=== PATIENT | female | born 1935 | race Caucasian/White ===

== ENCOUNTER 2020-07-04 07:47 | Inpatient (IN) | payer MEDICARE, OTHER ==
[2020-07-04 08:15] VITALS: BMI 23.0
[2020-07-04] MEDS ORDERED: VANCOMYCIN 1 GM in D5W (PRE-DOCKED) 1,000 MG/250 ML IVPB ONE (08:22)
[2020-07-04] MEDS ORDERED: ACETAMINOPHEN 1000 MG/100 ML VIAL (NON FORMULARY) IVPB ONE (08:22)
[2020-07-04] MEDS ORDERED: LACTATED RINGERS SOLUTION 1000 ML INFUS.BAG IV ONE (08:22)
[2020-07-04] MEDS ORDERED: PIPERACILLIN/TAZOB 4.5 GM 4.5 GM in DEXTROSE 5%-WATER 100 ML IVPB ONE (08:22)
[2020-07-04] MEDS ORDERED: DEXAMETHASONE SOD PHOSPHATE 4 MG/1 ML VIAL IVPUSH ONE (08:35)
[2020-07-04 09:03] LABS: BASO % 0.1 % (0-2.0); HEMOGLOBIN 13.7 GM/dL (10.7-15.3); MCH 31.9 pg (25.7-33.7); MCHC 34.3 g/dl (32.0-36.0); MEAN CELL VOLUME 93.1 fl (80-96); MONO % 6.6 % (3.8-10.2); NEUT % 79.3 % (42.8-82.8); PLATELET COUNT 200 K/MM3 (134-434); RDW 15.4 % (11.6-15.6)
[2020-07-04 09:08] LABS: INR 1.32 (0.83-1.09); PROTHROMBIN TIME (PATIENT) 15.8 SEC (9.7-13.0)
[2020-07-04 09:30] LABS: CHLORIDE 111 mmol/L (98-107); SODIUM 145 mmol/L (136-145)
[2020-07-04 09:32] LABS: CALCIUM 9.2 mg/dL (8.5-10.1)
[2020-07-04 09:33] LABS: ALBUMIN 3.2 g/dl (3.4-5.0); BLOOD UREA NITROGEN 56.6 mg/dL (7-18); CO2 28 mmol/L (21-32); GLUCOSE,RANDOM 124 mg/dL (74-106); MAGNESIUM 2.2 mg/dL (1.8-2.4)
[2020-07-04 09:36] LABS: CREATININE 1.7 mg/dL (0.55-1.3); SGOT/AST 118 U/L (15-37); SGPT/ALT 69 U/L (13-61)
[2020-07-04 09:37] LABS: ARTERIAL BLD GAS O2 SATURATION 97.5 mmHg (95-98); ARTERIAL BLOOD GAS BASE EXCESS 1.7 mmol/L (-2-2); ARTERIAL BLOOD GAS PO2 79.6 mmHg (80-100); ARTERIAL BLOOD GAS pH 7.593 (7.350-7.450)
[2020-07-04 09:37] LABS: BILIRUBIN,TOTAL 0.4 mg/dL (0.2-1); TOT PROT 7.1 g/dl (6.4-8.2)
[2020-07-04 09:38] LABS: ALK PHOS 48 U/L (45-117)
[2020-07-04 09:39] LABS: N-TERMINAL BNP 6077.6 pg/ml (5-450)
[2020-07-04 10:01] LABS: ERYTHROCYTE SEDIMENTATION RATE 48 mm/hr (0-30)
[2020-07-04 10:12] LABS: LDH 562 U/L (84-246)
[2020-07-04 10:16] LABS: ANION GAP 6 MMOL/L (8-16)
[2020-07-04 10:22] LABS: POTASSIUM 2.9 mmol/L (3.5-5.1)
[2020-07-04] MEDS ORDERED: FAMOTIDINE 20 MG/50 ML IVPB 20 MG/50 ML MG IVPB SCH (10:45)
[2020-07-04 11:01] LABS: INFLU A MOLECULAR Negative (Negative); SARS COV-2 MOLECULAR Positive (Negative)
[2020-07-04 11:02] LABS: INFLU B MOLECULAR Negative (Negative)
[2020-07-04 11:39] LABS: POTASSIUM 4.1 mmol/L (3.5-5.1)
[2020-07-04] MEDS ORDERED: DEXAMETHASONE SOD PHOSPHATE 10 MG/1 ML VIAL ONE (11:42)
[2020-07-04] MEDS ORDERED: ASCORBIC ACID 500 MG TABLET (FP) ONE (11:42)
[2020-07-04] MEDS ORDERED: ACETAMINOPHEN INJECTION 100 ML IVPB ONE (11:43)
[2020-07-04] MEDS ORDERED: ZINC SULFATE 220 MG CAPSULE (FP) ONE (11:43)
[2020-07-04] MEDS ORDERED: KCL 10 MEQ IVPB 10 MEQ/100 ML INFUS.BAG IVPB ONE ×2 (11:44→15:44)
[2020-07-04] MEDS ORDERED: PIPERACILLIN/TAZOB 4.5 GM 4.5 GM/100 ML BAG IVPB ONE (11:44)
[2020-07-04] MEDS ORDERED: VANCOMYCIN 1 GRAM (PRE-DOCKED) 1,000 MG/250 ML BAG IVPB ONE (11:44)
[2020-07-04] MEDS: KCL 10 MEQ IVPB 10 MEQ/100 ML INFUS.BAG IVPB SCH ×3 (12:00→15:50)
[2020-07-04] MEDS: SODIUM CHLORIDE 1,000 ML IV SCH (12:00)
[2020-07-04] MEDS: ZINC SULFATE 220 MG CAPSULE (FP) PO SCH (12:25)
[2020-07-04] MEDS: ASCORBIC ACID 500 MG TABLET (FP) PO SCH (12:26)
[2020-07-04 12:52] LABS: EPI CELLS 1 /uL (0-25.1); HYALINE CASTS 0 /uL (0-3.1); PH,URINE 6.5 (5.0-8.0); URINE APPEARANCE CLOUDY; URINE BACTERIA >9,000 /uL (0-1359); URINE BILIRUBIN NEGATIVE (NEGATIVE); URINE COLOR YELLOW; URINE GLUCOSE (UA) NEGATIVE (NEGATIVE); URINE KETONE NEGATIVE (NEGATIVE); URINE LEUK ESTERASE TRACE (NEGATIVE); URINE NITRITE NEGATIVE (NEGATIVE); URINE PROTEIN 2+ (NEGATIVE); URINE RBC 11 /uL (0-23.9); URINE UROBILINOGEN 0.2 mg/dL (0.2-1.0); URINE WBC 168 /uL (0-25.8)
[2020-07-04] MEDS ORDERED: LORazepam 2 MG/ML SDV VIAL ONE (15:42)
[2020-07-04] MEDS ORDERED: LORazepam 2 MG/ML SDV VIAL IVPUSH ONE ×2 (15:45→16:02)
[2020-07-04] MEDS ORDERED: KETAMINE HCL 200 MG/20 ML VIAL IVPB ONE (16:09)
[2020-07-04] MEDS ORDERED: HEPARIN NA (PORCINE) 5,000 UNITS/ML 1ML VIAL ONE (17:00)
[2020-07-04] MEDS: HEPARIN NA (PORCINE) 5,000 UNITS/ML 1ML VIAL SQ SCH ×2 (17:15→22:49)
[2020-07-05] MEDS: HEPARIN NA (PORCINE) 5,000 UNITS/ML 1ML VIAL SQ SCH ×2 (05:18→14:17)
[2020-07-05 07:48] LABS: BASO % 0.2 % (0-2.0); HEMATOCRIT 42.9 % (32.4-45.2); HEMOGLOBIN 14.4 GM/dL (10.7-15.3); MCH 32.2 pg (25.7-33.7); MCHC 33.7 g/dl (32.0-36.0); MEAN CELL VOLUME 95.6 fl (80-96); MEAN PLT VOLUME 10.3 fl (7.5-11.1); MONO % 8.3 % (3.8-10.2); NEUT % 76.5 % (42.8-82.8); PLATELET COUNT 155 K/MM3 (134-434); POTASSIUM 3.7 mmol/L (3.5-5.1); RBC 4.49 M/mm3 (3.60-5.2); RDW 15.5 % (11.6-15.6); WHITE BLOOD COUNT 4.1 K/mm3 (4.0-10.0)
[2020-07-05 07:55] LABS: ALBUMIN 2.9 g/dl (3.4-5.0); MAGNESIUM 2.3 mg/dL (1.8-2.4)
[2020-07-05 07:56] LABS: BLOOD UREA NITROGEN 62.8 mg/dL (7-18); CALCIUM 8.9 mg/dL (8.5-10.1)
[2020-07-05 07:58] LABS: CREATININE 1.6 mg/dL (0.55-1.3)
[2020-07-05 07:59] LABS: PHOSPHOROUS 4.6 mg/dL (2.5-4.9)
[2020-07-05 08:00] LABS: BILIRUBIN,TOTAL 0.5 mg/dL (0.2-1); TOT PROT 6.5 g/dl (6.4-8.2)
[2020-07-05] MEDS: ZINC SULFATE 220 MG CAPSULE (FP) PO SCH (10:34)
[2020-07-05] MEDS: ASCORBIC ACID 500 MG TABLET (FP) PO SCH (10:35)
[2020-07-05] MEDS ORDERED: DEXAMETHASONE SOD PHOSPHATE 4 MG/1 ML VIAL IVPUSH ONE (10:41)
[2020-07-05] MEDS ORDERED: DEXTROSE 5%-WATER - 50 ML IVPB ONE (14:11)
[2020-07-05] MEDS ORDERED: cefTRIAXone SODIUM 1 GM VIAL ONE (14:11)
[2020-07-05] MEDS: CEFTRIAXONE 1 GM in DEXTROSE 5%-WATER - 50 ML IVPB SCH (14:16)
[2020-07-05] MEDS: SODIUM CHLORIDE 1,000 ML IV SCH (14:17)
[2020-07-05] MEDS ORDERED: AMMONIUM LACTATE 12% LOTION 225 GM BOTTLE TP SCH (18:30)
[2020-07-05] MEDS: APIXABAN 2.5 MG TABLET PO SCH (22:09)
[2020-07-05] MEDS: AMMONIUM LACTATE 12% LOTION 225 GM BOTTLE TP SCH (22:10)
[2020-07-06 08:02] LABS: BASO % 0.2 % (0-2.0); HEMATOCRIT 38.2 % (32.4-45.2); HEMOGLOBIN 12.8 GM/dL (10.7-15.3); LYMPH % 11.5 % (8-40); MCH 31.7 pg (25.7-33.7); MCHC 33.6 g/dl (32.0-36.0); MEAN CELL VOLUME 94.2 fl (80-96); MONO % 7.3 % (3.8-10.2); PLATELET COUNT 226 K/MM3 (134-434); RBC 4.05 M/mm3 (3.60-5.2); RDW 15.4 % (11.6-15.6); WHITE BLOOD COUNT 5.3 K/mm3 (4.0-10.0)
[2020-07-06 08:17] LABS: POTASSIUM 3.7 mmol/L (3.5-5.1)
[2020-07-06 08:52] LABS: BLOOD UREA NITROGEN 76.9 mg/dL (7-18)
[2020-07-06 08:55] LABS: CREATININE 1.5 mg/dL (0.55-1.3); MAGNESIUM 1.4 mg/dL (1.8-2.4)
[2020-07-06 08:56] LABS: TOT PROT 6.5 g/dl (6.4-8.2)
[2020-07-06 09:13] LABS: BILIRUBIN,TOTAL 0.3 mg/dL (0.2-1)
[2020-07-06] MEDS ORDERED: cefTRIAXone SODIUM 1 GM VIAL ONE (09:24)
[2020-07-06] MEDS ORDERED: DEXTROSE 5%-WATER - 50 ML IVPB ONE (09:24)
[2020-07-06] MEDS: CEFTRIAXONE 1 GM in DEXTROSE 5%-WATER - 50 ML IVPB SCH ×2 (09:37→10:46)
[2020-07-06] MEDS: ASCORBIC ACID 500 MG TABLET (FP) PO SCH (09:38)
[2020-07-06] MEDS: ZINC SULFATE 220 MG CAPSULE (FP) PO SCH (09:38)
[2020-07-06] MEDS: APIXABAN 2.5 MG TABLET PO SCH ×2 (09:38→22:19)
[2020-07-06] MEDS: SODIUM CHLORIDE 1,000 ML IV SCH (10:44)
[2020-07-06] MEDS: AMMONIUM LACTATE 12% LOTION 225 GM BOTTLE TP SCH ×2 (10:44→22:19)
[2020-07-06] MEDS: LORazepam 2 MG/ML SDV VIAL IVPUSH PRN (14:30)
[2020-07-06] MEDS ORDERED: MEROPENEM 1 GM VIAL (RESTRICTED TO ID) IVPB ONE (15:41)
[2020-07-06] MEDS ORDERED: DEXTROSE 5%-WATER 100 ML IVPB ONE (15:41)
[2020-07-06] MEDS: MEROPENEM 1 GM in DEXTROSE 5%-WATER 100 ML IVPB SCH ×2 (15:42→22:19)
[2020-07-06] MEDS: AMINO ACIDS/PROTEIN HYDROLYS 30 ML LIQUID.PKT PO SCH (17:10)
[2020-07-06] MEDS ORDERED: DEXTROSE 5%-WATER - 1,000 ML IV SCH (18:15)
[2020-07-07] MEDS: ACETAMINOPHEN 325 MG TABLET (FP) PO PRN ×2 (06:17→21:52)
[2020-07-07] MEDS ORDERED: MAGNESIUM OXIDE 400 MG TABLET (FP) PO ONE (07:49)
[2020-07-07 08:07] LABS: BASO % 0.1 % (0-2.0); EOS % 0.1 % (0-4.5); HEMATOCRIT 36.4 % (32.4-45.2); HEMOGLOBIN 12.4 GM/dL (10.7-15.3); LYMPH % 16.1 % (8-40); MCH 31.8 pg (25.7-33.7); MCHC 34.1 g/dl (32.0-36.0); MEAN CELL VOLUME 93.4 fl (80-96); MEAN PLT VOLUME 8.4 fl (7.5-11.1); MONO % 6.5 % (3.8-10.2); NEUT % 77.2 % (42.8-82.8); PLATELET COUNT 201 K/MM3 (134-434); RBC 3.89 M/mm3 (3.60-5.2); RDW 15.3 % (11.6-15.6); WHITE BLOOD COUNT 3.5 K/mm3 (4.0-10.0)
[2020-07-07 08:18] LABS: POTASSIUM 3.5 mmol/L (3.5-5.1)
[2020-07-07 08:25] LABS: ALBUMIN 2.8 g/dl (3.4-5.0); CALCIUM 8.9 mg/dL (8.5-10.1); MAGNESIUM 2.4 mg/dL (1.8-2.4)
[2020-07-07 08:28] LABS: CREATININE 1.1 mg/dL (0.55-1.3)
[2020-07-07 08:30] LABS: BILIRUBIN,TOTAL 0.6 mg/dL (0.2-1); TOT PROT 6.1 g/dl (6.4-8.2)
[2020-07-07] MEDS ORDERED: DEXTROSE 5%-WATER 100 ML IVPB ONE ×2 (08:47→20:39)
[2020-07-07] MEDS ORDERED: MEROPENEM 1 GM VIAL (RESTRICTED TO ID) IVPB ONE ×2 (08:47→20:39)
[2020-07-07] MEDS ORDERED: DEXTROSE 5%-WATER - 1,000 ML IV SCH (08:52)
[2020-07-07] MEDS: FAMOTIDINE 20 MG/50 ML IVPB 20 MG/50 ML MG IVPB SCH (09:16)
[2020-07-07] MEDS: AMINO ACIDS/PROTEIN HYDROLYS 30 ML LIQUID.PKT PO SCH ×2 (09:16→17:18)
[2020-07-07] MEDS: APIXABAN 2.5 MG TABLET PO SCH ×2 (09:17→21:14)
[2020-07-07] MEDS: MEROPENEM 1 GM in DEXTROSE 5%-WATER 100 ML IVPB SCH ×2 (09:17→21:14)
[2020-07-07] MEDS: ZINC SULFATE 220 MG CAPSULE (FP) PO SCH (09:17)
[2020-07-07] MEDS: MULTIVITAMINS THER W-MINERALS COMBO TABLET (FP) PO SCH (09:17)
[2020-07-07] MEDS: ASCORBIC ACID 500 MG TABLET (FP) PO SCH (09:17)
[2020-07-07] MEDS: AMMONIUM LACTATE 12% LOTION 225 GM BOTTLE TP SCH ×2 (09:18→21:14)
[2020-07-07] MEDS: LORazepam 2 MG/ML SDV VIAL IVPUSH PRN ×2 (09:19→21:53)
[2020-07-07] MEDS ORDERED: DEXTROSE 5% IVPB ONE (17:00)
[2020-07-07] MEDS ORDERED: POLYMYXIN B SULFATE IVPB ONE (17:00)
[2020-07-07] MEDS ORDERED: WATER IVPB ONE (17:00)
[2020-07-07] MEDS: POTASSIUM CHLORIDE 10 MEQ in DEXTROSE 5%-WATER - 1,000 ML IV SCH (17:17)
[2020-07-07 17:47] LABS: POTASSIUM 3.5 mmol/L (3.5-5.1)
[2020-07-07 17:48] LABS: BLOOD UREA NITROGEN 47.2 mg/dL (7-18); CALCIUM 8.6 mg/dL (8.5-10.1)
[2020-07-07 17:52] LABS: CREATININE 1.1 mg/dL (0.55-1.3)
[2020-07-08] MEDS: POLYMYXIN B SULFATE IVPB SCH ×2 (05:30→17:18)
[2020-07-08] MEDS: POTASSIUM CHLORIDE 10 MEQ in DEXTROSE 5%-WATER - 1,000 ML IV SCH ×2 (05:30→17:18)
[2020-07-08] MEDS: WATER IVPB SCH ×2 (05:30→17:18)
[2020-07-08] MEDS: DEXTROSE 5% IVPB SCH ×2 (05:30→17:18)
[2020-07-08] MEDS ORDERED: DEXTROSE 5%-WATER 100 ML IVPB ONE ×2 (08:35→20:37)
[2020-07-08] MEDS ORDERED: MEROPENEM 1 GM VIAL (RESTRICTED TO ID) IVPB ONE ×2 (08:35→20:36)
[2020-07-08] MEDS: APIXABAN 2.5 MG TABLET PO SCH ×3 (09:14→22:00)
[2020-07-08] MEDS: MULTIVITAMINS THER W-MINERALS COMBO TABLET (FP) PO SCH (09:14)
[2020-07-08] MEDS: ZINC SULFATE 220 MG CAPSULE (FP) PO SCH (09:14)
[2020-07-08] MEDS: AMINO ACIDS/PROTEIN HYDROLYS 30 ML LIQUID.PKT PO SCH ×2 (09:15→17:18)
[2020-07-08] MEDS: AMMONIUM LACTATE 12% LOTION 225 GM BOTTLE TP SCH ×2 (09:15→21:09)
[2020-07-08] MEDS: ASCORBIC ACID 500 MG TABLET (FP) PO SCH (09:15)
[2020-07-08] MEDS: MEROPENEM 1 GM in DEXTROSE 5%-WATER 100 ML IVPB SCH ×2 (09:15→21:05)
[2020-07-08 09:17] LABS: BASO % 0.2 % (0-2.0); EOS % 0.5 % (0-4.5); HEMATOCRIT 38.1 % (32.4-45.2); HEMOGLOBIN 13.3 GM/dL (10.7-15.3); LYMPH % 19.5 % (8-40); MCH 32.9 pg (25.7-33.7); MEAN CELL VOLUME 94.1 fl (80-96); MEAN PLT VOLUME 8.7 fl (7.5-11.1); MONO % 4.3 % (3.8-10.2); NEUT % 75.5 % (42.8-82.8); PLATELET COUNT 178 K/MM3 (134-434); RBC 4.05 M/mm3 (3.60-5.2); RDW 15.1 % (11.6-15.6); WHITE BLOOD COUNT 4.7 K/mm3 (4.0-10.0)
[2020-07-08 09:28] LABS: POTASSIUM 3.6 mmol/L (3.5-5.1)
[2020-07-08 10:23] LABS: ALBUMIN 2.7 g/dl (3.4-5.0); TOT PROT 6.5 g/dl (6.4-8.2)
[2020-07-08 10:24] LABS: BILIRUBIN,TOTAL 0.6 mg/dL (0.2-1)
[2020-07-08 10:25] LABS: BLOOD UREA NITROGEN 39.1 mg/dL (7-18)
[2020-07-08 10:26] LABS: CALCIUM 8.5 mg/dL (8.5-10.1); MAGNESIUM 2.3 mg/dL (1.8-2.4)
[2020-07-08 10:27] LABS: CREATININE 1.1 mg/dL (0.55-1.3)
[2020-07-08] MEDS: LORazepam 2 MG/ML SDV VIAL IVPUSH PRN (23:55)
[2020-07-09] MEDS ORDERED: ACETAMINOPHEN 1000 MG/100 ML VIAL (NON FORMULARY) IVPB ONE (03:59)
[2020-07-09] MEDS: POLYMYXIN B SULFATE IVPB SCH ×2 (04:26→17:01)
[2020-07-09] MEDS: WATER IVPB SCH ×2 (04:26→17:01)
[2020-07-09] MEDS: DEXTROSE 5% IVPB SCH ×2 (04:26→17:01)
[2020-07-09] MEDS: POTASSIUM CHLORIDE 10 MEQ in DEXTROSE 5%-WATER - 1,000 ML IV SCH ×2 (05:57→14:42)
[2020-07-09] MEDS: AMINO ACIDS/PROTEIN HYDROLYS 30 ML LIQUID.PKT PO SCH ×2 (08:30→16:42)
[2020-07-09] MEDS: ZINC SULFATE 220 MG CAPSULE (FP) PO SCH (09:29)
[2020-07-09] MEDS: AMMONIUM LACTATE 12% LOTION 225 GM BOTTLE TP SCH ×2 (09:29→21:37)
[2020-07-09] MEDS: APIXABAN 2.5 MG TABLET PO SCH (09:29)
[2020-07-09] MEDS: MULTIVITAMINS THER W-MINERALS COMBO TABLET (FP) PO SCH (09:30)
[2020-07-09] MEDS: ASCORBIC ACID 500 MG TABLET (FP) PO SCH (09:30)
[2020-07-09] MEDS ORDERED: MEROPENEM 1 GM VIAL (RESTRICTED TO ID) IVPB ONE ×2 (11:07→21:09)
[2020-07-09] MEDS ORDERED: DEXTROSE 5%-WATER 100 ML IVPB ONE ×2 (11:07→21:10)
[2020-07-09] MEDS: FAMOTIDINE 20 MG/50 ML IVPB 20 MG/50 ML MG IVPB SCH (11:15)
[2020-07-09] MEDS: MEROPENEM 1 GM in DEXTROSE 5%-WATER 100 ML IVPB SCH ×2 (11:16→21:20)
[2020-07-09 13:03] LABS: BASO % 0.4 % (0-2.0); EOS % 0.9 % (0-4.5); HEMATOCRIT 38.6 % (32.4-45.2); LYMPH % 17.4 % (8-40); MCH 31.7 pg (25.7-33.7); MCHC 33.7 g/dl (32.0-36.0); MEAN CELL VOLUME 93.9 fl (80-96); MONO % 2.6 % (3.8-10.2); NEUT % 78.7 % (42.8-82.8); PLATELET COUNT 146 K/MM3 (134-434); RBC 4.11 M/mm3 (3.60-5.2); RDW 14.6 % (11.6-15.6); WHITE BLOOD COUNT 7.6 K/mm3 (4.0-10.0)
[2020-07-09] MEDS: DEXAMETHASONE SOD PHOSPHATE 4 MG/1 ML VIAL IVPUSH SCH (13:06)
[2020-07-09 13:28] LABS: POTASSIUM 3.9 mmol/L (3.5-5.1)
[2020-07-09 13:32] LABS: BLOOD UREA NITROGEN 36.2 mg/dL (7-18); CALCIUM 8.5 mg/dL (8.5-10.1); MAGNESIUM 2.1 mg/dL (1.8-2.4)
[2020-07-09 13:33] LABS: ALBUMIN 2.4 g/dl (3.4-5.0)
[2020-07-09 13:36] LABS: CREATININE 1.2 mg/dL (0.55-1.3)
[2020-07-09 13:37] LABS: BILIRUBIN,TOTAL 0.8 mg/dL (0.2-1); TOT PROT 6.1 g/dl (6.4-8.2)
[2020-07-09] MEDS ORDERED: PT OWN MED DRAWER 7, Y5N ONE (16:45)
[2020-07-09] MEDS: LORazepam 2 MG/ML SDV VIAL IVPUSH PRN (23:38)
[2020-07-10] MEDS ORDERED: PT OWN MED DRAWER 7, Y5N ONE ×2 (05:29→17:35)
[2020-07-10] MEDS: POTASSIUM CHLORIDE 10 MEQ in DEXTROSE 5%-WATER - 1,000 ML IV SCH ×2 (05:54→20:33)
[2020-07-10] MEDS: POLYMYXIN B SULFATE IVPB SCH ×2 (06:05→17:37)
[2020-07-10] MEDS: WATER IVPB SCH ×2 (06:05→17:37)
[2020-07-10] MEDS: DEXTROSE 5% IVPB SCH ×2 (06:05→17:37)
[2020-07-10] MEDS: AMINO ACIDS/PROTEIN HYDROLYS 30 ML LIQUID.PKT PO SCH ×2 (07:48→17:25)
[2020-07-10] MEDS: ASCORBIC ACID 500 MG TABLET (FP) PO SCH (09:37)
[2020-07-10] MEDS: MULTIVITAMINS THER W-MINERALS COMBO TABLET (FP) PO SCH (09:37)
[2020-07-10 09:39] LABS: HEMOGLOBIN 11.6 GM/dL (10.7-15.3); LYMPH % 5.7 % (8-40); MEAN PLT VOLUME 10.2 fl (7.5-11.1); WHITE BLOOD COUNT 9.3 K/mm3 (4.0-10.0)
[2020-07-10 09:43] LABS: BASO % 0.2 % (0-2.0); HEMATOCRIT 33.8 % (32.4-45.2); MCHC 34.2 g/dl (32.0-36.0); MEAN CELL VOLUME 93.5 fl (80-96); MONO % 4.2 % (3.8-10.2); NEUT % 89.9 % (42.8-82.8); PLATELET COUNT 137 K/MM3 (134-434); RBC 3.62 M/mm3 (3.60-5.2); RDW 14.3 % (11.6-15.6)
[2020-07-10 09:55] LABS: POTASSIUM 3.6 mmol/L (3.5-5.1)
[2020-07-10 10:14] LABS: CALCIUM 8.1 mg/dL (8.5-10.1)
[2020-07-10 10:15] LABS: ALBUMIN 1.9 g/dl (3.4-5.0); BLOOD UREA NITROGEN 43.6 mg/dL (7-18); MAGNESIUM 1.8 mg/dL (1.8-2.4)
[2020-07-10 10:18] LABS: CREATININE 1.3 mg/dL (0.55-1.3)
[2020-07-10 10:20] LABS: BILIRUBIN,TOTAL 0.4 mg/dL (0.2-1); TOT PROT 5.1 g/dl (6.4-8.2)
[2020-07-10] MEDS ORDERED: DEXTROSE 5%-WATER 100 ML IVPB ONE ×2 (10:41→21:05)
[2020-07-10] MEDS ORDERED: MEROPENEM 1 GM VIAL (RESTRICTED TO ID) IVPB ONE ×2 (10:41→21:04)
[2020-07-10] MEDS: MEROPENEM 1 GM in DEXTROSE 5%-WATER 100 ML IVPB SCH ×2 (11:02→22:50)
[2020-07-10] MEDS: ENOXAPARIN NA (PORCINE) 30 MG/0.3 ML DISP.SYRIN SQ SCH (11:04)
[2020-07-10] MEDS: AMMONIUM LACTATE 12% LOTION 225 GM BOTTLE TP SCH ×2 (11:04→21:34)
[2020-07-10] MEDS: DEXAMETHASONE SOD PHOSPHATE 4 MG/1 ML VIAL IVPUSH SCH (11:19)
[2020-07-10] MEDS: LORazepam 2 MG/ML SDV VIAL IVPUSH PRN (23:28)
[2020-07-11] MEDS ORDERED: PT OWN MED DRAWER 7, Y5N ONE (05:27)
[2020-07-11] MEDS: WATER IVPB SCH ×2 (05:55→17:38)
[2020-07-11] MEDS: DEXTROSE 5% IVPB SCH ×2 (05:55→17:38)
[2020-07-11] MEDS: POLYMYXIN B SULFATE IVPB SCH ×2 (05:55→17:38)
[2020-07-11] MEDS: POTASSIUM CHLORIDE 10 MEQ in DEXTROSE 5%-WATER - 1,000 ML IV SCH ×2 (06:17→08:48)
[2020-07-11 07:18] LABS: BASO % 0.1 % (0-2.0); HEMATOCRIT 40.9 % (32.4-45.2); HEMOGLOBIN 13.4 GM/dL (10.7-15.3); LYMPH % 5.1 % (8-40); MCH 31.3 pg (25.7-33.7); MCHC 32.8 g/dl (32.0-36.0); MEAN CELL VOLUME 95.4 fl (80-96); MEAN PLT VOLUME 10.4 fl (7.5-11.1); MONO % 3.9 % (3.8-10.2); NEUT % 90.9 % (42.8-82.8); PLATELET COUNT 149 K/MM3 (134-434); RBC 4.29 M/mm3 (3.60-5.2); RDW 14.7 % (11.6-15.6); WHITE BLOOD COUNT 16.3 K/mm3 (4.0-10.0)
[2020-07-11 07:44] LABS: POTASSIUM 4.1 mmol/L (3.5-5.1)
[2020-07-11 08:11] LABS: CALCIUM 8.2 mg/dL (8.5-10.1)
[2020-07-11 08:12] LABS: BLOOD UREA NITROGEN 52.9 mg/dL (7-18); MAGNESIUM 1.8 mg/dL (1.8-2.4)
[2020-07-11 08:15] LABS: CREATININE 1.5 mg/dL (0.55-1.3)
[2020-07-11 08:16] LABS: BILIRUBIN,TOTAL 0.6 mg/dL (0.2-1); TOT PROT 5.9 g/dl (6.4-8.2)
[2020-07-11] MEDS: AMINO ACIDS/PROTEIN HYDROLYS 30 ML LIQUID.PKT PO SCH ×2 (08:47→17:38)
[2020-07-11] MEDS ORDERED: DEXTROSE 5%-WATER 100 ML IVPB ONE (09:34)
[2020-07-11] MEDS ORDERED: MEROPENEM 1 GM VIAL (RESTRICTED TO ID) IVPB ONE (09:34)
[2020-07-11] MEDS: DEXAMETHASONE SOD PHOSPHATE 4 MG/1 ML VIAL IVPUSH SCH (09:54)
[2020-07-11] MEDS: ENOXAPARIN NA (PORCINE) 30 MG/0.3 ML DISP.SYRIN SQ SCH (09:55)
[2020-07-11] MEDS: MEROPENEM 1 GM in DEXTROSE 5%-WATER 100 ML IVPB SCH (09:55)
[2020-07-11] MEDS: AMMONIUM LACTATE 12% LOTION 225 GM BOTTLE TP SCH (09:55)
[2020-07-11] MEDS: MULTIVITAMINS THER W-MINERALS COMBO TABLET (FP) PO SCH (09:56)
[2020-07-11] MEDS: FAMOTIDINE 20 MG/50 ML IVPB 20 MG/50 ML MG IVPB SCH (09:56)
[2020-07-11] MEDS: ASCORBIC ACID 500 MG TABLET (FP) PO SCH (09:56)
[2020-07-11] MEDS ORDERED: DEXTROSE 5%-0.45% SALINE 1,000 ML IV SCH (12:30)
[2020-07-11] MEDS ORDERED: MORPHINE SULFATE 2 MG/ML VIAL IVPUSH PRN (13:51)
[2020-07-11 14:24] VITALS: BP 88/37; PULSE 103; TEMP 98.2
== END 2020-07-11 19:35 | disposition expired | DRG 177 ==
LOC: JER 07:47 → JERBED 09:50 → J4W 21:03
PROVIDERS: ADMIT Internal Medicine; ATTEND Nurse Practitioner Family
DX: U07.1 COVID-19 (principal); J96.01 Acute respiratory failure with hypoxia; J12.82 Pneumonia due to coronavirus disease 2019; N17.9 Acute kidney failure, unspecified; I24.8 Other forms of acute ischemic heart disease; E87.0 Hyperosmolality and hypernatremia; N39.0 Urinary tract infection, site not specified; I10 Essential (primary) hypertension; F03.90 Unspecified dementia, unspecified severity, without behavioral disturbance, psychotic disturbance, mood disturbance, and anxiety; M48.00 Spinal stenosis, site unspecified; I50.9 Heart failure, unspecified
CPT/HCPCS: 36415; 36600; 71045-TC-FY; 80048; 80053; 81003; 82550; 82553; 82728; 82803; 82962; 83605; 83615; 83735; 83880; 84100; 84132; 84484; 85025; 85379; 85610; 85651; 85730; 86140; 86769; 86850; 86900; 86901; 87040; 87086; 87186; 87502; 93005; 93010; 94660; 99285-25; C9803; J0131; J1644; U0003